=== PATIENT | female | born 1980 | race Caucasian/White ===

== ENCOUNTER 2021-11-15 10:24 | Emergency (ER) | payer SELFPAY ==
[2021-11-15] VITALS (18 sets, daily range): BP systolic 140–162; BP diastolic 60–98; PULSE 88–91; RESP 18–19; TEMP 36.6–36.7; O2SAT 96–100
--- NOTE | ~2021-11-15 | XR_ITS ---
EXAMINATION: XR chest 1V portable 11/15/2021 11:55 INDICATION: Dizziness PROCEDURE: AP portable chest COMPARISON: 01/23/2018 FINDINGS: The lungs are clear. The cardiomediastinal silhouette is within normal limits. There are no pleural effusions. There is no pneumothorax suspected. IMPRESSION: 1: NO ACUTE CARDIOPULMONARY DISEASE. Reviewed, dictated and finalized at location A.
--- NOTE | ~2021-11-15 | US_ITS ---
US OB <=14 wk fetus w TV DATE: 11/15/2021 12:19 INDICATION: Dizziness TECHNIQUE: Real-time imaging via transabdominal and transvaginal approaches COMPARISON: None FINDINGS: The uterus measures 11.8 cm height, 6.1 cm AP dimension. Intrauterine gestational sac is id entified. The sac appears normally shaped. Gestational sac size is consistent with 6 weeks 5 days est imated gestational age. pole and yolk sac are identified with heart rate of 101 bpm. The right ovary is not visualized. The left ovary measures 2.3 x 2.2 cm. No pelvic mass or abnormal pelvic fluid collection is evident. IMPRESSION: Early intrauterine gestation, estimated gestational age of 6 weeks 5 days Reviewed, dictated and finalized at Location A. Reviewed, dictated and finalized at location B.
--- NOTE | ~2021-11-15 | CT_ITS ---
EXAMINATION: CT BRAIN W/O DATE: 11/15/2021 11:54 INDICATION: Dizziness and lightheadedness. Bilateral extremity tingling. TECHNIQUE: Computed tomography (CT) of the head was performed without intravenous contrast. The dose- length product was 529.67 mGy-cm. Automated exposure control and iterative reconstruction technique w ere employed. COMPARISON: 02/05/2016 FINDINGS: Normal brain parenchymal volume for age. Normal gamez-white differentiation. No acute intrac ranial hemorrhage, infarction, mass or mass effect. No ventriculomegaly or midline shift. Midline sagittal images demonstrate a normal corpus callosum, c raniovertebral junction and sella turcica. Basilar cisterns are patent. Paranasal sinuses and mastoids are pneumatized. No depressed skull fractures. IMPRESSION: 1. No acute intracranial abnormality. Reviewed, dictated and finalized at location A.
--- NOTE | 2021-11-15 11:19 | PC.NURSE ---
PT AMBULATORY TO RR WITHOUT DIFFICULTY, RETURNS TO EXAM ROOM WITHOUT DISTRESS. WILL CONTINUE TO MONITOR.
[2021-11-15 11:22] LABS: Add Urine Microscopic? YES; Appearance Urine Clear (Clear); Bilirubin Urine Negative (Negative); Blood Urine Negative (Negative); Color Urine Yellow (Yellow); Glucose Urine UA Negative (Negative); Ketones Urine Negative (Negative); Leukocyte Esterase Ur Trace (Negative); Nitrate Urine Negative (Negative); Protein Urine Negative (Negative); Specific Grav Ur >= 1.030 (1.010-1.020); Urobilinogen Urine 0.2 mg/dL (0.2-1.0)
[2021-11-15 11:23] LABS: Basophils Absolute Auto 0.06 K/mm3 (0.00-0.10); Basophils Percent Auto 0.7 % (0.0-1.0); Eosinophils Absolute Auto 0.05 K/mm3 (0.02-0.50); Eosinophils Percent Auto 0.6 % (1.0-6.0); Hematocrit 41.1 % (35.0-49.0); Immature Granulocyte Absolute 0.04 K/mm3 (0.00-0.00); Immature Granulocyte Percent A 0.5 % (0.0-0.0); Lymphocytes Absolute Auto 1.78 K/mm3 (1.10-4.50); Lymphocytes Percent Auto 20.4 % (18.0-42.0); Mean Corpuscular HGB Conc 34.1 g/dL (32.0-36.0); Mean Corpuscular Hemoglobin 32.6 pg (27.0-31.0); Mean Corpuscular Volume 95.6 fL (78.0-102.0); Mean Platelet Volume 11.1 fl (9.2-11.8); Monocytes Absolute Auto 0.61 K/mm3 (0.10-0.90); Neutrophils Absolute Auto 6.2 K/mm3 (1.7-7.2); Neutrophils Percent Auto 70.8 % (50.0-70.0); Platelet Count Result 216 K/mm3 (150-420); White Blood Count 8.7 K/mm3 (4.8-10.8)
[2021-11-15 11:27] LABS: Bacteria Urine 1+ /hpf; Mucus Urine Few /lpf; RBC Urine None seen /hpf (0-2); Squamous Epithelial Cell Urine Moderate /hpf (Few)
[2021-11-15 11:29] LABS: Amphetamine Screen Urine Negative (Negative); Barbiturate Screen Urine Negative (Negative); Benzodiazepines Screen Urine Negative (Negative); Cannabinoid Screen Urine Positive (Negative); Cocaine Screen Urine Negative (Negative); Methadone Screen Urine Negative (Negative); Opiate Screen Urine Negative (Negative); Phencyclidine Screen Urine Negative (Negative)
--- NOTE | 2021-11-15 11:29 | PC.NURSE ---
Pt taken for imaging. Will start IVF upon her return to ER.
[2021-11-15 11:36] LABS: Anion Gap 7 mmol/L (8-16); Blood Urea Nitrogen 15 mg/dL (7-18); Carbon Dioxide 24 mmol/L (21-32); Chloride 103 mmol/L (98-108); Estimated CRCL calculation 85 ml/min; Estimated Glomerular Filt Rate > 60; Glucose 99 mg/dL (70-99); Osmolality Calculated 278 mOsm/kg (285-295); Potassium 3.8 mmol/L (3.5-5.1); Sodium 134 mmol/L (136-145)
--- NOTE | 2021-11-15 11:36 | PC.NURSE ---
PT IN RADIOLOGY AT THIS TIME.
[2021-11-15 11:37] LABS: Alanine Aminotransferase 15 U/L (14-59); Albumin Level 3.4 g/dL (3.4-5.0); Alkaline Phosphatase 66 U/L (46-116); Aspartate Amino Transferase < 10 U/L (15-37); Bilirubin,Total 0.3 mg/dL (0.00-1.00); Calcium 8.6 mg/dL (8.5-10.1); Ethanol < 3 mg/dL (0-6); Total Protein 6.3 g/dL (6.4-8.2)
--- NOTE | 2021-11-15 11:41 | PC.NURSE ---
PT IN RADIOLOGY AT THIS TIME.
[2021-11-15] MEDS: SODIUM CHLORIDE 0.9% IV 1,000 ML 999 ML IV CONT (12:06)
--- NOTE | 2021-11-15 12:10 | PC.NURSE ---
PT RETURNED FROM RADIOLOGY. DENIES ANY NEEDS OR COMPLAINTS. IVF INFUSING ORDERED WITHOUT DIFFICULTY. VSS PER MONITOR. PT REPORTS SHE IS FELLING A LITTLE BETTER THAN WHEN SHE CAME IN. NAD NOTED. SON AT BEDSIDE. WILL CONTINUE TO MONITOR.
--- NOTE | 2021-11-15 12:48 | ED.DIZZY ---
HPI - Dizziness General Chief Complaint: Dizziness Stated Complaint: LIGHT HEADED Time Seen by Provider: 11/15/21 10:28 Source: patient and RN notes reviewed Mode of arrival: ambulatory Limitations: no limitations History of Present Illness MD elicited complaint: dizziness and lightheadedness Onset (ago): day(s) (1) Timing: gradual onset Severity: moderate Description: lightheadedness Context: other (pt is ) History of similar symptoms: Yes Exacerbating factors: nothing Relieving factors: nothing Associated symptoms: nausea Stroke scale total: 0 Related Data Allergies Allergy/AdvReac Type Severity Reaction Status Date / Time No Known Allergies Allergy Verified 11/15/21 10:35 Review of Systems Review of Systems: All systems reviewed & are unremarkable except as noted in HPI and below Constitutional: Constitutional: Reports no additional constitutional complaints Eyes: Eyes: Reports no additional eye complaints ENT: Reports system reviewed and no additional complaints, except as documented Cardiovascular: Cardiovascular: Reports no additional cardiovascular complaints Respiratory: Respiratory: Reports no additional respiratory complaints Gastrointestinal: Gastrointestinal: Reports no additional gastrointestinal complaints Genitourinary: Genitourinary: Reports no additional female genitourinary complaints Musculoskeletal: Musculoskeletal: Reports no additional musculoskeletal complaints Integumentary/Breasts: Skin/Breast: Reports system reviewed and no additional complaints, except as docu Neurologic: Reports system reviewed and no additional complaints, except as documented and Reports dizziness Psychiatric: Psychiatric: Reports no additional psychiatric complaints Endocrine: Endocrine: Reports no additional endocrine complaints Hematologic/Lymphatic: Hematologic/Lymphatic: Reports no additional hematologic/lymphatic complaints Allergic/Immunologic: Allergic/Immunologic: Reports no additional allergic/immunologic complaints COUNTS INCLUDE 234 BEDS AT THE [facility] Past Medical History Medical History Benign hypertension Depression Nicotine dependence Normal UTI (urinary tract infection) Surgical History Surgical History H/O lithotripsy Social History Social History Smoking packs per day: 1 Smoking cigarettes per day: 20.0 Years smoked: 20 Smoking pack-years: 20.00 Smoking status: Current every day smoker Tobacco type: cigarettes Alcohol intake: current Alcohol use details: social Substance use: current Substance use type: marijuana Additional living arrangements comments: , has 4 children 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 Gender identity (if verbalized by the patient): Female Spiritual care concerns: No Exam Const: General: no acute distress Nutritional Appearance: well nourished Orientation/consciousness: patient oriented x3 Limitations: no limitations HENMT: Head: normal to inspection Ears: external ears normal, TM's normal bilaterally and EAC's normal General nose exam: Normal external nose present and Normal nares present Face and sinus: normal facial exam and sinuses nontender Mouth: Yes Normal oral and palatal mucosa present and Yes moist mucous membranes Teeth and gingiva: dentition normal Throat: posterior oropharynx normal Eyes: Conjunctivae: conjunctivae normal Pupils: Equal, round and reactive pupils present EOM: EOMs intact bilaterally Neck: Neck: normal visual inspection, no lymphadenopathy and no meningeal signs Chest: Chest palpation & inspection: normal inspection of the chest Resp: Effort & Inspection: normal respiratory effort Auscultation: clear to auscultation bilaterally Cardio: Rate: regular rate Rhythm: regular rhythm GI: GI Palp: Yes Soft to
--- NOTE | 2021-11-15 13:22 | PC.NURSE ---
PT IS SITTING ON STRETCHER TEXTING AND TALKING WITH SON WITHOUT DISTRESS. PT HAS IV MEDICATIONS INFUSING ORDERED WITHOUT DIFFICULTY. WILL CONTINUE TO MONITOR.
== END 2021-11-15 13:50 | disposition home or self-care (01) ==
PROVIDERS: Emergency Provider Emergency Medicine; PCP Obstetrics & Gynecology
DX: Z33.1 Pregnant state, incidental (principal); N39.0 Urinary tract infection, site not specified
CPT/HCPCS: 36415; 70450; 71045; 76801; 76817; 80053; 80307; 81001; 85025; 96361; 96365; 99284; J0696; J7030

== ENCOUNTER 2022-11-14 08:35 | Emergency (ER) | payer OTHER, BC, SELFPAY ==
--- NOTE | ~2022-11-14 | XR_ITS ---
EXAMINATION: XR hand RT min 3V INDICATION: Right hand pain TECHNIQUE: Three views of the right hand are obtained. COMPARISON: None available FINDINGS: No fracture, dislocation, or subluxation. The bones, soft tissues, and joint spaces are nor mal. IMPRESSION: 1. No acute osseous abnormality. Reviewed, dictated and finalized at location B.
--- NOTE | ~2022-11-14 | XR_ITS ---
EXAMINATION: XR wrist RT min 3V INDICATION: Right wrist pain TECHNIQUE: Four views of the right wrist are obtained. COMPARISON: None available FINDINGS: No fracture, dislocation, or subluxation. The bones, soft tissues, and joint spaces are nor mal. IMPRESSION: 1. No acute osseous abnormality. Reviewed, dictated and finalized at location B.
[2022-11-14 08:35] VITALS: BP 172/91; PULSE 103; RESP 18; TEMP 36.6; O2SAT 97
[2022-11-14] MEDS: methocarbamoL 500 MG TABLET 1000 MG PO (09:56)
[2022-11-14] MEDS: ACETAMINOPHEN 500 MG TABLET 1000 MG PO (09:57)
[2022-11-14] MEDS: KETOROLAC (*BKC) 60 MG/2 ML VIAL IM (09:58)
--- NOTE | 2022-11-14 09:58 | ED.GENADULT ---
HPI - General Adult General Chief complaint: Extremity Injury, Upper Stated complaint: RT HAND PAIN Time Seen by Provider: 11/14/22 09:18 History of Present Illness HPI narrative: 42yo woman presents with right wrist and hand pain and stiffness after a fall yesterday where she landed right FOOSH. Mild pain yesterday, but now unable to range the fingers much at all. Feels better to keep her hand elevated. Becomes numb and tight feeling when in dependent position. Also some scrapes to left knee but no significant pain, no difficulty walking. Related Data Allergies Allergy/AdvReac Type Severity Reaction Status Date / Time No Known Allergies Allergy Verified 11/15/21 10:35 Review of Systems Review of Systems: All systems reviewed & are unremarkable except as noted in HPI and below Constitutional: Constitutional: Denies fever(s) ENT: Denies dizziness Cardiovascular: Cardiovascular: Denies chest pain Respiratory: Respiratory: Denies dyspnea Gastrointestinal: Gastrointestinal: Denies abdominal pain Neurologic: Denies focal weakness PMFSH Past Medical History Medical History Benign hypertension Depression Nicotine dependence Normal UTI (urinary tract infection) Surgical History Surgical History H/O lithotripsy Social History Social History Smoking packs per day: 1 Smoking cigarettes per day: 20.0 Years smoked: 20 Smoking pack-years: 20.00 Smoking status: Current every day smoker Tobacco type: cigarettes Alcohol intake: current Alcohol use details: social Substance use: current Substance use type: marijuana Living arrangements: with family Additional living arrangements comments: , has 4 children Occupation/Education: occupation 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 Gender identity (if verbalized by the patient): Female Spiritual care concerns: No Exam Const: General: healthy appearing and no acute distress Nutritional Appearance: well nourished Eyes: Conjunctivae: conjunctivae normal Neck: Other: supple Resp: Effort & Inspection: normal respiratory effort and not labored Auscultation: clear to auscultation bilaterally Cardio: Rate: regular rate Rhythm: regular rhythm GI: Inspection: non-distended Skin: General skin exam: normal color, no jaundice and no pallor Neuro: General: patient oriented x3 Speech: normal speech Extrem: General: no edema Course Vital Signs Vital signs: Vital Signs Temperature 36.6 C 11/14/22 08:35 Pulse Rate 103 H 11/14/22 08:35 Respiratory Rate 18 11/14/22 08:35 Blood Pressure 172/91 H 11/14/22 08:35 Pulse Oximetry 97 11/14/22 08:35 Oxygen Delivery Room Air 11/14/22 08:35 Temperature 36.6 C 11/14/22 08:35 Pulse Rate 103 H 11/14/22 08:35 Respiratory Rate 18 11/14/22 08:35 Blood Pressure 172/91 H 11/14/22 08:35 Pulse Oximetry 97 11/14/22 08:35 Oxygen Delivery Room Air 11/14/22 08:35 Medical Decision Making MDM Narrative Medical decision making narrative: FOOSH hand pain DDx contusion, fracture, sprain, neuropraxia. X-rays to eval. Vital Signs Vital Signs: Vital Signs Temperature 36.6 C 11/14/22 08:35 Pulse Rate 103 H 11/14/22 08:35 Respiratory Rate 18 11/14/22 08:35 Blood Pressure 172/91 H 11/14/22 08:35 Pulse Oximetry 97 11/14/22 08:35 Oxygen Delivery Room Air 11/14/22 08:35 Temperature 36.6 C 11/14/22 08:35 Pulse Rate 103 H 11/14/22 08:35 Respiratory Rate 18 11/14/22 08:35 Blood Pressure 172/91 H 11/14/22 08:35 Pulse Oximetry 97 11/14/22 08:35 Oxygen Delivery Room Air 11/14/22 08:35 Imaging Data Attestation: I personally reviewed and interpreted this imaging study as follows: My impression: No acu
== END 2022-11-14 10:49 | disposition home or self-care (01) ==
PROVIDERS: Emergency Provider Emergency Medicine; PCP Family Medicine
DX: S63.501A Unspecified sprain of right wrist, initial encounter (principal); S60.211A Contusion of right wrist, initial encounter; S60.221A Contusion of right hand, initial encounter; I10 Essential (primary) hypertension; F17.210 Nicotine dependence, cigarettes, uncomplicated; W19.XXXA Unspecified fall, initial encounter
CPT/HCPCS: 29125; 73110; 73130; 96372; 99283; A4565; A9270; J1885